=== PATIENT | female | born 1985 | race Caucasian/White ===

== ENCOUNTER 2024-06-05 12:21 | Outpatient (AMB) | payer OTHER, SELFPAY ==
[2024-06-05 12:40] VITALS: BP 120/78; PULSE 67; O2SAT 99
--- NOTE | 2024-06-05 12:40 | MHC.OFFWIV ---
Intake Vital Signs 06/05/24 12:40 Weight 152 lb BP 120/78 Blood Pressure Location Rt brachial Position Sitting Pulse 67 Pulse Source Pulse Oximeter Pulse Oximetry (%) 99 Oxygen Delivery Method Room Air Intake Visit Reasons: [employer] Pain, bruising, swelling on LT foot. Intake Note: Patient here because she missed the last step yesterday and rolled her left foot and is unable to bare weight Patient Tobacco Use Status: Never used Tobacco Allergies No Known Allergies Allergy (Verified 06/05/24 13:10) Medication List - Last Reconciled 06/05/24 by David Snell MD No Known Home Meds Do you need a note to return to daycare/school/sports/work: No HPI [employer] Pain, bruising, swelling on LT foot. HPI Details 38 yr old female presents to the office for a sick visit. Tripped on the last step. Swelling and bruising over the left foot. Pain on bearing weight. PFSH Social History Patient Tobacco Use Status: Never used Tobacco Physical Exam Vital Signs: Last Vital Signs Pulse 67 06/05/24 12:40 BP 120/78 06/05/24 12:40 Pulse Ox 99 06/05/24 12:40 Oxygen Delivery Method Room Air 06/05/24 12:40 Extrem Other: Left foot: Bruising over the dorsum of the foot on the lateral side. FROM at the ankle. Assessment & Plan Assessment & Plan (1) Contusion of foot, left: Code(s): S90.32XA - Contusion of left foot, initial encounter Plan: X ray images were personally reviewed by me. Fracture fifth metatarsal. Minimal displacement. Boot provided. OTC NSAIDS for pain control. Keep foot elevated. [place] Informed her she will need to see an living specialist. Orders: Orders XR foot LT min 3V Today S90.32XA - Contusion of left foot, initial encounter Coding Level of Care Code New Pt Level 4 (33230) Diagnoses Contusion of foot, left S90.32XA
== END 2024-06-05 14:37 | disposition home or self-care (01) ==
PROVIDERS: Visit Provider Internal Medicine
DX: S90.32XA Contusion of left foot, initial encounter (principal)

== ENCOUNTER 2024-06-05 12:21 | Outpatient (REF) | payer OTHER, SELFPAY | END 2024-06-05 12:22 | disposition home or self-care (01) | LOC: HO.HMGCX 12:21 | PROVIDERS: Visit Provider Internal Medicine | DX: S92.352A Displaced fracture of fifth metatarsal bone, left foot, initial encounter for closed fracture (principal); S90.32XA Contusion of left foot, initial encounter; X58.XXXA Exposure to other specified factors, initial encounter; Y93.9 Activity, unspecified; Y92.9 Unspecified place or not applicable; Y99.9 Unspecified external cause status | CPT/HCPCS: 73630 ==